=== PATIENT | male | born 1960 | race Caucasian/White ===

== ENCOUNTER 2021-06-26 20:28 | Day surgery (SDCO) | payer MEDICARE, OTHER ==
[~2021-06-26] VITALS: Ht 185.4 cm; Wt 87.1 kg
[2021-06-26 23:23] LABS: BASOPHIL 0.4 % (0-2); EOSINOPHIL 0 % (0-5); HCT 46.5 % (42.0-52.0); HGB 15.4 g/dl (13.2-18.0); LYMPHOCYTE 26.2 % (15-48); MCH 27.5 pg (25.0-31.0); MCHC 33.1 g/dL (32.0-36.0); MONOCYTE 10.9 % (0-12); MPV 8.8 fL (6.0-9.5); NEUTROPHIL 61.9 % (41-80); NRBC 0; PLT 277 K/uL (150-400); RDW 12.8 % (11.5-14.0); WBC 4.9 K/uL (4.0-10.5)
[2021-06-26 23:40] LABS: ALBUMIN 3.5 g/dL (3.4-5.0); BILIRUBIN - TOTAL 0.6 mg/dL (0.2-1.0); BUN/CREAT RATIO (CALC) 8.4 RATIO; CREATININE 3.46 mg/dL (0.67-1.17); GLOBULIN (CALCULATION) 3.9 g/dL; POTASSIUM 4.3 mmol/L (3.5-5.1); TOTAL PROTEIN 7.4 g/dL (6.4-8.2)
[2021-06-27] MEDS ORDERED: LOPERAMIDE2 MG PO (05:36)
[2021-06-27] MEDS ORDERED: VENTOLIN HFA IN18 GM INH (05:37)
[2021-06-27] MEDS ORDERED: ONDANSETRON HCL4 MG PO (05:37)
[2021-06-27] MEDS ORDERED: NOVOLOG VI100 UNIT/1 IM/IV/SC (05:38)
[2021-06-27] MEDS ORDERED: NOVOLIN R100 UNIT/3 IM/IV/SC (05:39)
[2021-06-27] MEDS ORDERED: QUETIAPINE FUMA50 MG PO (05:40)
[2021-06-27] MEDS ORDERED: CLONIDINE HCL0.1 MG PO (05:41)
[2021-06-27] MEDS ORDERED: HYDRALAZINE25 MG PO (05:42)
[2021-06-27] MEDS ORDERED: FAMOTIDINE40 MG PO (05:42)
[2021-06-27] MEDS ORDERED: HYDROXYZINE PAM50 M1 PO (05:43)
[2021-06-27] MEDS ORDERED: IBUPROFEN800 M1 PO (05:44)
[2021-06-27] MEDS ORDERED: LISINOPRIL20 MG PO (05:44)
[2021-06-27] MEDS ORDERED: VERAPAMIL HCL120 MG PO (05:45)
[2021-06-27] MEDS ORDERED: JANUVIA 100MG100 MG PO (05:45)
[2021-06-27] MEDS ORDERED: PREDNISONE20 MG PO (05:46)
[2021-06-27] MEDS ORDERED: LASIX20 MG PO (05:48)
[2021-06-27] MEDS ORDERED: PREGABALIN200 MG PO (05:49)
[2021-06-27] MEDS ORDERED: SUBOXONE 2 MG-1 EACH PO ×2 (05:53→08:49)
[2021-06-27] MEDS ORDERED: SUBOXONE 8 MG-1 EACH PO (08:49)
[2021-06-27 12:58] LABS: BUN/CREAT RATIO (CALC) 10.7 RATIO; CREATININE 2.72 mg/dL (0.67-1.17); POTASSIUM 3.7 mmol/L (3.5-5.1)
[2021-06-28 06:18] LABS: BASOPHIL 0.4 % (0-2); EOSINOPHIL 0.2 % (0-5); HCT 41.9 % (42.0-52.0); HGB 13.4 g/dl (13.2-18.0); LYMPHOCYTE 41.3 % (15-48); MCH 27.3 pg (25.0-31.0); MCV 85.5 fL (78.0-100.0); MONOCYTE 8.7 % (0-12); MPV 8.7 fL (6.0-9.5); NRBC 0; PLT 237 K/uL (150-400); RDW 12.7 % (11.5-14.0); WBC 5.2 K/uL (4.0-10.5)
[2021-06-28 06:51] LABS: ALBUMIN 3.4 g/dL (3.4-5.0); ALKALINE PHOSHATASE 71 U/L (46-116); ALT 34 U/L (16-63); AST 26 U/L (15-37); BILIRUBIN - TOTAL 0.4 mg/dL (0.2-1.0); BUN 19 mg/dL (7-18); BUN/CREAT RATIO (CALC) 10.4 RATIO; CHLORIDE 105 mmol/L (98-107); CO2 (BICARBONATE) 27 mmol/L (21-32); CREATININE 1.83 mg/dL (0.67-1.17); GLOBULIN (CALCULATION) 3.2 g/dL; GLUCOSE 201 mg/dL (74-106); LDH 169 U/L (85-227); MAGNESIUM 2.1 mg/dL (1.8-2.4); POTASSIUM 4.5 mmol/L (3.5-5.1); TOTAL PROTEIN 6.6 g/dL (6.4-8.2)
[2021-06-28 07:00] LABS: C-REACTIVE PROTEIN < 0.20 mg/dL (<=0.90)
[2021-06-29 07:06] LABS: BUN/CREAT RATIO (CALC) 11.6 RATIO; CREATININE 1.46 mg/dL (0.67-1.17); POTASSIUM 4.2 mmol/L (3.5-5.1)
--- NOTE | 2021-06-29 13:05 | NUR ---
NEW IV PLACED THIS MORNING. WHEN RETURNED TO ROOM PATIENT HAD PULLED IV TUBING APART AND TIED ENDS IN KNOTS. IV REMOVED. NOTIFIED. TELE ALSO DISCONTINUED D/T PATIENT REMOVING LEADS, FINGER PROBE. PATIENT CONFUSED, ATTEMPTS TO COME OUT IN HALLWAY, PATIENT INFORMED TO STAY IN ROOM D/T ISOLATION FOR COVID 19
--- NOTE | 2021-06-29 13:39 | NUR ---
PATIENT O2 SATS STABLE WHEN AMBULATING. STAYS 94-95% ON ROOM AIR
--- NOTE | 2021-06-29 14:29 | NUR ---
CALLED [phone] TO [facility] AND SPOKE TO AGUILAR ABOUT NEEDING TRANSPORT SHE SAID SHE WOULD SENT OUT ANOTHER MESSAGE TO HER TRANSPORT TEAM
--- NOTE | 2021-06-29 15:17 | NUR ---
UPON ENTERING ROOM, PATIENT NOTED STANDING IN SHOWER HOLDING ONTO RAIL TALKING TO WALL
--- NOTE | 2021-06-29 16:01 | NUR ---
PATIENT INCONTINENT AT THIS TIME, REFUSED TO BE CHANGED
--- NOTE | 2021-06-29 17:50 | NUR ---
NEW PANTS GIVEN TO PATIENT D/T INCONTINENT. UPON DISCHARGE, PATIENT INCONTINENT AGAIN AND REFUSED TO LET STAFF CHANGE. [facility] ARRIVED TO PICK PATIENT UP TO GO BACK TO TREATMENT
== END 2021-06-29 15:47 | disposition home or self-care (01) ==
LOC: FER 20:28 → FMS 06-27 02:59
PROVIDERS: Emergency Medicine; Nurse Practitioner; ADMIT Internal Medicine
DX: A41.89 Other specified sepsis (principal); U07.1 COVID-19; E86.0 Dehydration; N17.9 Acute kidney failure, unspecified; E11.9 Type 2 diabetes mellitus without complications; N40.0 Benign prostatic hyperplasia without lower urinary tract symptoms; I10 Essential (primary) hypertension; E78.5 Hyperlipidemia, unspecified; J44.9 Chronic obstructive pulmonary disease, unspecified; K21.9 Gastro-esophageal reflux disease without esophagitis; F17.210 Nicotine dependence, cigarettes, uncomplicated; F14.20 Cocaine dependence, uncomplicated; F19.20 Other psychoactive substance dependence, uncomplicated; Z66 Do not resuscitate; Z79.4 Long term (current) use of insulin; Z79.899 Other long term (current) drug therapy; Z88.5 Allergy status to narcotic agent; Z88.6 Allergy status to analgesic agent
CPT/HCPCS: 36415; 71045; 80048; 80053; 82728; 82962; 83615; 83735; 84484; 85025; 86140; 93005; 94640; 94760; 94762; G0378; J0456; J1644; J7030; J7050; U0002